=== PATIENT | male | born 1970 ===

== ENCOUNTER 2021-09-26 19:20 | Emergency (ER) | payer SELFPAY ==
[2021-09-26 20:42] VITALS: BP 159/97
== END 2021-09-27 07:00 | disposition left against medical advice (07) ==
LOC: ED 19:20
DX: Z00.00 Encounter for general adult medical examination without abnormal findings (principal); Z53.21 Procedure and treatment not carried out due to patient leaving prior to being seen by health care provider

== ENCOUNTER 2021-10-05 15:03 | Emergency (ER) | payer SELFPAY ==
[2021-10-05 16:29] VITALS: BP 140/77
[2021-10-05 19:32] LABS: Basophils # (Auto) 0.1 K/mm3 (0.0-0.1); Basophils % (Auto) 1.2 % (0.0-1.8); Eosinophils # (Auto) 0.1 K/mm3 (0.0-0.4); Eosinophils % (Auto) 2.9 % (0.0-4.3); Hematocrit 27.3 % (35.5-45.6); Hemoglobin 9.2 gm/dl (11.8-15.2); Lymphocytes # (Auto) 0.9 K/mm3 (1.2-5.4); Lymphocytes % (Auto) 21.8 % (13.4-35.0); Mean Corpuscular HGB Conc 34 % (32-34); Mean Corpuscular Volume 93 fl (84-94); Monocytes # (Auto) 0.5 K/mm3 (0.0-0.8); Monocytes % (Auto) 10.9 % (0.0-7.3); Platelet Count 186 K/mm3 (140-440); Red Blood Count 2.93 M/mm3 (3.65-5.03)
[2021-10-05 19:45] LABS: Albumin 4.2 g/dL (3.9-5); Calcium 7.2 mg/dL (8.4-10.2)
--- NOTE | 2021-10-07 10:00 | Electrocardiograph Report ---
[facility] Test Date: 2021-10-05 Test Time: 16:28:24 Pat Name: LINDA VAZQUEZ Department: Room: Gender: M Milker Machine: SUSAN : 1970 Requested By: DORINA BRIONES Order Number: [id number] Reading MD: Ja Brock Measurements Intervals [place] Rate: 68 P: 50 WI: 155 QRS: 55 QRSD: 77 T: 69 QT: 473 QTc: 504 Interpretive Statements Sinus rhythm Abnrm T, consider ischemia, anterolateral lds Prolonged QT interval No previous ECG available for comparison Electronically Signed On 10-07-2021 10:00:13 EDT by Ja Brock
== END 2021-10-05 23:51 | disposition left against medical advice (07) ==
LOC: ED 15:03
DX: Z00.00 Encounter for general adult medical examination without abnormal findings (principal); Z53.21 Procedure and treatment not carried out due to patient leaving prior to being seen by health care provider
CPT/HCPCS: 36415; 80053; 85025; 93005